=== PATIENT | male | born 1990 | race Two or more races ===

== ENCOUNTER 2022-10-26 13:25 | Emergency (ER) | payer BC, OTHER ==
[~2022-10-26] VITALS: Ht 170.2 cm; Wt 76.0 kg
[2022-10-26] MEDS ORDERED: FLUORESCEIN SOD OPTH TEST STRIP OP ONE (14:00)
[2022-10-26] MEDS ORDERED: TETRACAINE HCL 0.5% OPTH(EYE) SOLN 4ML LEFTEYE ONE (14:00)
[2022-10-26 15:05] VITALS: BP 126/71
[2022-10-26] MEDS ORDERED: CIP03OS LEFTEYE (15:21)
== END 2022-10-26 15:34 | disposition home or self-care (01) ==
LOC: ER 13:25
DX: S05.02XA Injury of conjunctiva and corneal abrasion without foreign body, left eye, initial encounter (principal); X58.XXXA Exposure to other specified factors, initial encounter; Y93.89 Activity, other specified; Y92.89 Other specified places as the place of occurrence of the external cause; Y99.8 Other external cause status